=== PATIENT | female | born 1940 | race Caucasian/White ===

== ENCOUNTER → 2016-11-30 | Outpatient (CLI) | payer OTHER | LOC: BMCIMAGING 08:47 | PROVIDERS: ATTEND Emergency Medicine | DX: J42 Unspecified chronic bronchitis (principal); M85.88 Other specified disorders of bone density and structure, other site ==

== ENCOUNTER → 2017-05-09 | Outpatient (CLI) | payer OTHER | LOC: FIMAGING 16:13 | PROVIDERS: ATTEND Internal Medicine | DX: N13.30 Unspecified hydronephrosis (principal); N20.0 Calculus of kidney; N28.89 Other specified disorders of kidney and ureter; N17.9 Acute kidney failure, unspecified ==

== ENCOUNTER 2017-05-10 10:09 | Day surgery (SDC) | payer OTHER ==
[2017-05-09 18:25] LABS: % IMMATURE GRANULYOCYTES 0.5 % (0.0-1.1); ABSOLUTE IMMATURE GRANULOCYTES 0.04 10^3/uL (0.00-0.10); ADD DIFF? NO; ADD MORPH? NO; ADD SCAN? NO; ATYPICAL LYMPHOCYTE FLAG 0 (0-99); FRAGMENT RBC FLAG 0 (0-99); HEMATOCRIT 37.9 % (38.0-47.0); HEMOGLOBIN 12.5 g/dL (12.6-16.3); LEFT SHIFT FLG 0 (0-99); LIPEMIA HEMOLYSIS FLAG 80 (0-99); MEAN CELL HEMOGLOBIN 32.1 pg (27.9-34.1); MEAN CELL VOLUME 97.2 fL (81.5-99.8); MEAN PLATELET VOLUME 9.3 fL (8.7-11.7); PLATELET CLUMPS FLAG 0 (0-99); PLATELET COUNT 344 10^3/uL (150-400); RED CELL DISTRIBUTION WIDTH 13.2 % (11.5-15.2)
[2017-05-09 19:00] LABS: APTT 29.3 SEC (23.0-38.0); INR 0.99 (0.83-1.16)
[2017-05-10] MEDS ORDERED: IOPAMIDOL (ISOVUE-300) 100 ML BTL ONE (10:24)
[2017-05-10] MEDS ORDERED: NS 1,000 ML IV SCH (10:45)
[2017-05-10] MEDS ORDERED: fentaNYL 100 MCG/2 ML INJ ONE (11:29)
[2017-05-10] MEDS ORDERED: MIDAZOLAM 2 MG/2 ML VIAL ONE (11:29)
[2017-05-10] MEDS ORDERED: LIDOCAINE 1% 300 MG/30 ML SDV ONE (12:17)
[2017-05-10 13:38] VITALS: BP 143/90; RESP 14; O2SAT 94
[2017-05-10 13:49] LABS: CREATININE 2.1 mg/dL (0.6-1.0); GLOMERULAR FILTRATION RATE 23
[2017-05-10] MEDS ORDERED: CLINDAMYCIN 600 MG/DEXTROSE 50 ML IV ONE (14:00)
== END 2017-05-10 13:50 | disposition home or self-care (01) ==
LOC: FIMAGING 10:09
PROVIDERS: ATTEND Internal Medicine
PROC: 0T9030Z Drainage of Right Kidney with Drainage Device, Percutaneous Approach (ICD-10-PCS; principal; 2017-05-10 12:25)
DX: N13.2 Hydronephrosis with renal and ureteral calculous obstruction (principal); N17.9 Acute kidney failure, unspecified; I12.9 Hypertensive chronic kidney disease with stage 1 through stage 4 chronic kidney disease, or unspecified chronic kidney disease; E11.22 Type 2 diabetes mellitus with diabetic chronic kidney disease; E03.9 Hypothyroidism, unspecified; N08 Glomerular disorders in diseases classified elsewhere; Z85.850 Personal history of malignant neoplasm of thyroid
CPT/HCPCS: 50432; 99152; C1729; C1769; J2250; J3010; Q9967

== ENCOUNTER → 2017-05-15 | Outpatient (CLI) | payer OTHER | LOC: CIMAGING 11:04 | PROVIDERS: ATTEND Physician Assistant Medical | DX: N20.0 Calculus of kidney (principal); Z93.6 Other artificial openings of urinary tract status; K57.30 Diverticulosis of large intestine without perforation or abscess without bleeding; K42.9 Umbilical hernia without obstruction or gangrene; K44.9 Diaphragmatic hernia without obstruction or gangrene; I70.0 Atherosclerosis of aorta; M51.35 Other intervertebral disc degeneration, thoracolumbar region; M51.36 Other intervertebral disc degeneration, lumbar region; M48.06 Spinal stenosis, lumbar region | CPT/HCPCS: 74176-PO ==

== ENCOUNTER 2017-05-29 07:30 | Day surgery (SDC) | payer OTHER ==
[2017-05-29] MEDS ORDERED: NALOXONE HCL 0.4 MG/ML INJ ONE (08:06)
[2017-05-29] MEDS ORDERED: fentaNYL 100 MCG/2 ML INJ ONE (08:06)
[2017-05-29] MEDS ORDERED: FLUMAZENIL 0.5 MG/5 ML MDV IVP ONE (08:06)
[2017-05-29] MEDS ORDERED: MIDAZOLAM 2 MG/2 ML VIAL ONE (08:07)
[2017-05-29] MEDS ORDERED: IOPAMIDOL (ISOVUE-300) 100 ML BTL ONE (08:30)
[2017-05-29] MEDS ORDERED: CLINDAMYCIN 900 MG/DEXTROSE 50 ML IV ONE (09:00)
[2017-05-29] MEDS ORDERED: methylPREDNISolone SOD SUCC 125 MG/2 ML VIAL ONE (10:18)
[2017-05-29] MEDS ORDERED: LIDOCAINE 1% 300 MG/30 ML SDV ONE (11:10)
[2017-05-29 11:48] VITALS: PULSE 69
[2017-05-29 13:10] VITALS: BP 125/51; RESP 16; O2SAT 93
[2017-05-29] MEDS ORDERED: ACETAMINOPHEN 325 MG TAB PO PRN (13:11)
[2017-05-29] MEDS ORDERED: ONDANSETRON 4 MG/2 ML VIAL IVP PRN (13:12)
[2017-05-29 13:14] VITALS: TEMP 97.5
== END 2017-05-29 13:18 | disposition home or self-care (01) ==
LOC: FIMAGING 07:30
PROVIDERS: ATTEND Radiology Diagnostic Radiology
PROC: BT161ZZ Fluoroscopy of Right Ureter using Low Osmolar Contrast (ICD-10-PCS; principal; 2017-05-29 11:23)
PROC: 0T763DZ Dilation of Right Ureter with Intraluminal Device, Percutaneous Approach (ICD-10-PCS; principal; 2017-05-29 11:23)
DX: N20.0 Calculus of kidney (principal); N13.1 Hydronephrosis with ureteral stricture, not elsewhere classified; E11.9 Type 2 diabetes mellitus without complications; Z87.442 Personal history of urinary calculi; Z98.84 Bariatric surgery status
CPT/HCPCS: 50693; 50706; 74425; 99152; 99153; C1729; C1769; J1200; J1644; J2250; J2310; J3010; Q9967

== ENCOUNTER 2017-05-30 06:57 | Observation (INO) | payer OTHER ==
[2017-05-30] MEDS ORDERED: VANCOMYCIN PHARMACY TO DOSE MISC ONE (07:11)
--- NOTE | 2017-05-30 07:13 | PDHPUP ---
History & Physical Update H&P update statement: This history and physical update is based on an assessment of the patient which was completed after admission or registration (within 24 hours), but prior to the surgery/procedure. H&P update: H&P reviewed & patient examined, no change in patient's condition since H&P completed
[2017-05-30] MEDS ORDERED: LR 1,000 ML IV ONE (07:29)
[2017-05-30] MEDS ORDERED: VANCOMYCIN HCL/NORMAL SALINE 250 ML IV ONE (07:30)
[2017-05-30] MEDS ORDERED: LIDOCAINE 1% 2 ML INJ ONE (07:40)
[2017-05-30] MEDS ORDERED: MINERAL OIL 10 ML VIAL ONE (07:41)
[2017-05-30] MEDS ORDERED: IOPAMIDOL (ISOVUE-300) 100 ML BTL ONE (07:43)
--- NOTE | 2017-05-30 07:53 | PDANEPAE ---
ANE History of Present Illness 76 yo F w lauren stones here for perc nephrolithotomy ANE Past Medical History - Cardiovascular History Hx Hypertension: Yes Hx Arrhythmias: No Hx Chest Pain: No Hx Coronary Artery / Peripheral Vascular Disease: No Hx CHF / Valvular Disease: No Hx Palpitations: No Cardiovascular History Comment: ABLATION 2014. INTERMITTENT PVC'S - Pulmonary History Hx COPD: No Hx Asthma/Reactive Airway Disease: No Hx Recent Upper Respiratory Infection: No Hx Oxygen in Use at Home: Yes Hx Sleep Apnea: Yes Sleep Apnea Screening Result - Last Documented: Positive Pulmonary History Comment: IVAN USES BIPAP. SOB WITH ACTIVITY - Neurologic History Hx Cerebrovascular Accident: No Hx Seizures: No Hx Dementia: No - Endocrine History Hx Diabetes: No Endocrine History Comment: NIDDM. HYPOTHYROID - Renal History Hx Renal Disorders: Yes Renal History Comment: DRAIN PLACED RT KIDNEY 05/10/17. HEMATURIA. PREV KIDNEY STONES. 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 CHRONIC BACK PAIN - Chronic Pain History Chronic Pain: Yes (BACK) - Surgical History Prior Surgeries: ABLATION 2014. gallbladder removal 2003. partial thyroidectomy 2006. lap band 2006. parathyroidectomy 2008. face lift 2010. CATARACT. TONSILLECTOMY ANE Review of Systems - Exercise capacity METS (RN): 4 METS ANE Patient History - Allergies Allergies/Adverse Reactions: Iodinated Contrast- Oral and IV Dye [Iodinated Contrast Media - IV Dye] Allergy (Severe, Verified 05/24/17 12:13) Swelling/neck,face,throat cefuroxime axetil [From Ceftin] Allergy (Intermediate, Verified 05/24/17 12:13) Rash - Home Medications Home Medications: Herbals/Supplements -Info Only 1 ea PO DAILY 07/06/15 [Last Taken 05/24/17] Levothyroxine [Synthroid 125 mcg (*)] 125 mcg PO DAILY06 05/09/17 [Last Taken ] Labetalol HCl [Trandate 200 mg (*)] 200 mg PO BID 05/24/17 [Last Taken 05/30/17 05:30] - NPO status NPO Since - Liquids (Date): 05/29/17 NPO Since - Liquids (Time): 17:00 NPO Since - Solids (Date): 05/29/17 NPO Since - Solids (Time): 17:00 - Anes Hx Anes Hx: no prior problems - Smoking Hx Smoking Status: Never smoked - Alcohol Use Alcohol Use: None - Family Anes Hx Family Anes Hx: none Family Hx Anesthesia Complications: None ANE Labs/Vital Signs - Vital Signs Blood Pressure: 151/79 Heart Rate: 63 Respiratory Rate: 16 O2 Sat (%): 92 Height: 158.75 cm Weight: 103.419 kg ANE Physical Exam - Airway Neck exam: FROM Mallampati Score: Class 3 Mouth exam: normal dental/mouth exam - Pulmonary Pulmonary: no respiratory distress - Cardiovascular Cardiovascular: regular rate and rhythym - ASA Status ASA Status: III ANE Anesthesia Plan Anesthesia Plan: general endotracheal anesthesia
--- NOTE | 2017-05-30 07:54 | GHP ---
[f rep st] PREOP HISTORY AND PHYSICAL HISTORY OF PRESENT ILLNESS: This is a 76-year-old lady who was referred originally because of right-sided hydronephrosis. She had a percutaneous nephrostomy tube placed for drainage, and her creatinine decreased in nature. The question was whether she had a distal ureteral stone at the time, and repeat assessment revealed no stone. Then she also had a left large staghorn calculus and, at the present time, she is admitted for the percutaneous nephrostolithotomy of the left staghorn calculus that measured 23 mm x 13 mm x 31 mm. PAST MEDICAL HISTORY: Significant as she has had diabetes, hypertension, hypercholesterolemia, hydronephrosis and kidney stone. PAST SURGERIES: Gallbladder surgery, gastric bypass, and thyroid surgery. MEDICATIONS: Amlodipine, oxycodone, Synthroid. ALLERGIES: Ceftin and iodine. FAMILY HISTORY: Heart disease, kidney stones, prostate cancer. SOCIAL HISTORY: Nondrinker and nonsmoker. She is and retired. REVIEW OF SYSTEMS: Negative cardiac, respiratory, GI and endocrine, other than the endocrine having hypothyroidism treated. PHYSICAL EXAM: VITAL SIGNS: In the office, she has a blood pressure of 115/75 , heart rate of 67, respirations 16, O2 saturation on room air was 95% and BMI of 40.24. VITAL SIGNS: Stable. CHEST: Clear. HEART: Regular rate and rhythm. ABDOMEN: Normal. No organomegaly, rebound, or guarding. She does have abdominal obesity. EXTREMITIES: Lower extremities are normal. NEUROLOGIC : She is oriented to time, place, and person. PLAN: At present time, she is admitted to undergo the above procedure. /[id number]/MODL MTDD
[2017-05-30] MEDS ORDERED: MIDAZOLAM 2 MG/2 ML VIAL IVP ONE (07:57)
[2017-05-30] MEDS ORDERED: PROPOFOL 200 MG/20 ML VIAL ONE ×2 (08:16)
[2017-05-30] MEDS ORDERED: fentaNYL 100 MCG/2 ML INJ ONE ×2 (08:16→10:52)
[2017-05-30] MEDS ORDERED: ROCURONIUM 50 MG/5 ML VIAL ONE (08:18)
[2017-05-30] MEDS ORDERED: LIDOCAINE 2% 100 MG/5 ML SYR ONE (08:18)
[2017-05-30] MEDS ORDERED: DEXAMETHASONE 4 MG/ML VIAL ONE (09:48)
[2017-05-30] MEDS ORDERED: ONDANSETRON 4 MG/2 ML VIAL ONE (09:48)
[2017-05-30] MEDS ORDERED: ACETAMINOPHEN 500 MG TAB PO PRN (10:48)
[2017-05-30] MEDS ORDERED: PROMETHAZINE HCL 25 MG/ML INJ IVP PRN (10:48)
[2017-05-30] MEDS ORDERED: ONDANSETRON 4 MG/2 ML VIAL IVP PRN (10:48)
[2017-05-30] MEDS ORDERED: NALOXONE HCL 0.4 MG/ML INJ IVP PRN (10:48)
[2017-05-30] MEDS ORDERED: OXYCODONE/APAP 5/325 TAB PO PRN (10:48)
[2017-05-30] MEDS ORDERED: HYDROmorphONE/DILAUDID 1 MG/ML SYR IVP PRN (10:48)
[2017-05-30] MEDS ORDERED: fentaNYL 100 MCG/2 ML INJ IVP PRN (10:48)
--- NOTE | 2017-05-30 11:02 | POSTOPPROG ---
Post Op Note Date of Operation: 05/30/17 Surgeon: Chava Moe Anesthesia: GET(General Endotracheal) Pre-op Diagnosis: lt staghorn Procedure: PCNL Inf/Abcess present in the surg proc area at time of surgery?: No EBL: 100-500 Drains: Nephrostomy Specimen(s): stone foe analysis and culture DICTATED
--- NOTE | 2017-05-30 11:05 | POSTOPPROG ---
Post Op Note Date of Operation: 05/30/17 Surgeon: Cristian Whitaker Multi Sensor Operator: Tessy Apodaca Anesthesia: GET(General Endotracheal) Pre-op Diagnosis: Left staghorn calculus Post-op Diagnosis: Same Indication: Left staghorn calculus Procedure: Tract dilation for PCNL by Dr. Moe, nephrostomy placement Findings: See report Inf/Abcess present in the surg proc area at time of surgery?: No EBL: 100-500 (Total, including PCNL portion performed by Dr. Moe) Complications: No immediate Drains: Nephrostomy (14-Fr left nephrostomy)
--- NOTE | 2017-05-30 11:55 | GOP ---
[f rep st] OPERATIVE REPORT DATE OF OPERATION: 05/30/2017 SURGEON: Chava Moe MD PREOPERATIVE DIAGNOSIS: Left staghorn calculus of the kidney. POSTOPERATIVE DIAGNOSIS: Left staghorn calculus of the kidney. PROCEDURE PERFORMED: Percutaneous nephrostolithotomy. FINDINGS: DESCRIPTION OF PROCEDURE: After appropriate general anesthesia and identification of the patient an d that eye appropriate time-out Interventional Radiology, dilated the tract and then I was able to e ventually suck all the clot out of the tubing in the renal pelvis. Identify the stone and with the [employer] was able to fragment the stone and aspirate all the small fragments. At the end of the pr ocedure, there was no significant fragment identified in any of the collecting system and the ureter appeared to be intact and after removal of this large staghorn calculus, fragments will be sent for analysis and then Interventional Radiology put in a nephrostomy tube that was appropriate. SURGEON: Chava Moe MD POSTOPERATIVE PLAN: She will be admitted for postoperative care. We will check serial hematocrits on her x3 and confirm that she has no significant bleeding and then postop date of 1-5, depending on her status, I will have him perform an antegrade nephrostogram to confirm no significant stone stacey en remaining. She may have some small specks of stone just from the fragmentation, but once again n o visualized calculus endoscopically or radiographically were identified postprocedure. /[id number]/MODL
--- NOTE | 2017-05-30 13:14 | POSTANESTH ---
Post Anesthetic Evaluation Cardiovascular Status: Normal, Stable, Similar to Pre-Op Cond Respiratory Status: Normal, Stable, Similar to Pre-op Cond. Level of Consciousness/Mental Status: Can Participate in Eval, Alert and Oriented Pain Control: Adequate, Prn Tx Ordered Nausea/Vomiting Control: Adequate, Prn Tx Ordered Complications Possibly Related to Anesthesia: None Noted
[2017-05-30] MEDS ORDERED: HYDROCODONE/APAP 5/325 TAB PO PRN (14:26)
[2017-05-30] MEDS ORDERED: ONDANSETRON DISINTEGRATING 4 MG TAB PO PRN (14:27)
[2017-05-30] MEDS ORDERED: NS 1,000 ML IV SCH (14:30)
[2017-05-31 03:50] VITALS: O2SAT 93
[2017-05-31 05:19] LABS: HEMATOCRIT 31.4 % (38.0-47.0); HEMOGLOBIN 10.1 g/dL (12.6-16.3)
[2017-05-31 07:38] VITALS: BP 158/85; PULSE 76; RESP 16; TEMP 98.5
[2017-05-31] MEDS ORDERED: IOPAMIDOL (ISOVUE-300) 100 ML BTL ONE (10:12)
[2017-05-31] MEDS ORDERED: LABETALOL HCL 200 MG TAB PO SCH (10:15)
[2017-05-31] MEDS ORDERED: LEVOTHYROXINE 125 MCG TAB PO SCH (10:15)
[2017-06-04 18:58] LABS: SOURCE OF STONE LEFT KIDNEY
[2017-06-04 19:00] LABS: NIDUS NOT OBSERVED
== END 2017-05-31 11:23 | disposition home or self-care (01) ==
LOC: INTOOBSV 06:57 → F3N 06:57 → F1N 12:37
PROVIDERS: ADMIT Specialist; ATTEND Specialist
PROC: 0TC14ZZ Extirpation of Matter from Left Kidney, Percutaneous Endoscopic Approach (ICD-10-PCS; principal; 2017-05-30 08:30)
PROC: 0TP5X0Z Removal of Drainage Device from Kidney, External Approach (ICD-10-PCS; 2017-05-30 08:30)
PROC: BT121ZZ Fluoroscopy of Left Kidney using Low Osmolar Contrast (ICD-10-PCS; 2017-05-30 08:30)
PROC: 0T9130Z Drainage of Left Kidney with Drainage Device, Percutaneous Approach (ICD-10-PCS; 2017-05-30 08:30)
PROC: 0T773ZZ Dilation of Left Ureter, Percutaneous Approach (ICD-10-PCS; 2017-05-30 08:30)
DX: N13.2 Hydronephrosis with renal and ureteral calculous obstruction (principal); E11.9 Type 2 diabetes mellitus without complications; I10 Essential (primary) hypertension; E78.5 Hyperlipidemia, unspecified; Z87.442 Personal history of urinary calculi; Z98.84 Bariatric surgery status; Z85.850 Personal history of malignant neoplasm of thyroid
CPT/HCPCS: 50080; 50432; 74425; 74485; 75984; C1725; C1729; C1769; J1100; J1200; J1644; J2001; J2250; J2405; J2704; J3010; J3370; Q9967; 82365-90

== ENCOUNTER 2017-06-06 09:06 | Day surgery (SDC) | payer OTHER ==
[2017-06-06] MEDS ORDERED: fentaNYL 100 MCG/2 ML INJ ONE (09:47)
[2017-06-06] MEDS ORDERED: FLUMAZENIL 0.5 MG/5 ML MDV IVP ONE (09:47)
[2017-06-06] MEDS ORDERED: MIDAZOLAM 2 MG/2 ML VIAL ONE (09:47)
[2017-06-06] MEDS ORDERED: NALOXONE HCL 0.4 MG/ML INJ ONE (09:47)
[2017-06-06] MEDS ORDERED: CLINDAMYCIN 900 MG/DEXTROSE/50 ML BAG IV ONE (09:48)
[2017-06-06] MEDS ORDERED: NS 1,000 ML IV SCH (10:00)
[2017-06-06] MEDS ORDERED: IOPAMIDOL (ISOVUE-300) 100 ML BTL ONE (11:13)
[2017-06-06 12:16] VITALS: PULSE 62
[2017-06-06 13:01] VITALS: BP 119/53; RESP 16; O2SAT 98
== END 2017-06-06 12:52 | disposition home or self-care (01) ==
LOC: FIMAGING 09:06
PROVIDERS: ATTEND Physician Assistant Medical
DX: N13.5 Crossing vessel and stricture of ureter without hydronephrosis (principal)
CPT/HCPCS: 50693; 74425; 99152; C1729; C1769; C1894; J1200; J1644; J2250; J2310; J3010; Q9967

== ENCOUNTER 2017-06-07 17:36 | Emergency (ER) | payer OTHER ==
[2017-06-07 18:29] LABS: % IMMATURE GRANULYOCYTES 0.8 % (0.0-1.1); ABSOLUTE IMMATURE GRANULOCYTES 0.09 10^3/uL (0.00-0.10); ADD DIFF? NO; ADD MORPH? NO; ADD SCAN? NO; ATYPICAL LYMPHOCYTE FLAG 0 (0-99); FRAGMENT RBC FLAG 0 (0-99); HEMATOCRIT 33.1 % (38.0-47.0); HEMOGLOBIN 10.9 g/dL (12.6-16.3); LEFT SHIFT FLG 10 (0-99); LIPEMIA HEMOLYSIS FLAG 80 (0-99); MEAN CELL HEMOGLOBIN 32.2 pg (27.9-34.1); MEAN CELL HEMOGLOBIN CONCENTR. 32.9 g/dL (32.4-36.7); MEAN CELL VOLUME 97.9 fL (81.5-99.8); MEAN PLATELET VOLUME 9.8 fL (8.7-11.7); PLATELET CLUMPS FLAG 0 (0-99); PLATELET COUNT 368 10^3/uL (150-400); RED BLOOD CELL COUNT 3.38 10^6/uL (4.18-5.33); RED CELL DISTRIBUTION WIDTH 13.6 % (11.5-15.2)
--- NOTE | 2017-06-07 18:43 | EDPHY ---
H & P Stated Complaint: Hx kidney stone;renal drain removed/stent placed 06/06;fever 101,incontinent Time Seen by Provider: 06/07/17 17:57 HPI/ROS: Chief complaint: Fever, pain with urination and urinary incontinence History of present illness: This is a 76-year-old female who presents to the emergency department for evaluation of fever with associated dysuria and urinary incontinence. Patient reports the onset of symptoms over the last day. She is concerned this is secondary to a procedure she underwent yesterday. Patient has a significant recent medical history that includes a right-sided kidney stone that required a percutaneous nephrostomy tube a few weeks ago and then a subsequent development of a staghorn calculus on the left side that required a nephrostolithotomy. Yesterday she underwent a nephrogram and had a double-J ureteral stent placed by interventional Radiology. Symptoms have begun since then. Review of systems: A 10 point review of systems was obtained and other than described above was negative - Personal History Current Tetanus Diphtheria and Acellular Pertussis (TDAP): Yes - Medical/Surgical History Hx Asthma: No Hx Chronic Respiratory Disease: Yes Hx Diabetes: No Hx Cardiac Disease: No Hx Renal Disease: No Hx Cirrhosis: No Hx Alcoholism: No Hx HIV/AIDS: No Hx Splenectomy or Spleen Trauma: No Other PMH: Leukemia 2004, IV[facility], osteoarthritis, EP Ablation for PVCs, Angiogram in [place]. kidney stone - Social History Smoking Status: Never smoked - Physical Exam Exam: General Appearance: Alert, nontoxic. Eyes: Pupils equal and round no pallor or injection. ENT, Mouth: Mucous membranes moist. Respiratory: There are no retractions, lungs are clear to auscultation. Cardiovascular: Regular rate and rhythm. Gastrointestinal: Abdomen is soft and non tender, no masses, bowel sounds normal. Neurological: Alert and oriented x4. Strength and sensation intact and symmetrical. Skin: Warm and dry, no rashes. IR site on her back appears unremarkable. Musculoskeletal: Neck is supple non tender. Extremities are symmetrical, full range of motion. Psychiatric: Patient is oriented X 3, there is no agitation. Constitutional: Initial Vital Signs Temperature (C) 38 C 06/07/17 17:45 Heart Rate 94 06/07/17 17:45 Respiratory Rate 18 06/07/17 17:45 Blood Pressure 130/59 H 06/07/17 17:45 O2 Sat (%) 94 06/07/17 17:45 O2 Delivery Mode Room Air Allergies/Adverse Reactions: Iodinated Contrast- Oral and IV Dye [Iodinated Contrast Media - IV Dye] Allergy (Severe, Verified 06/07/17 17:49) Swelling/neck,face,throat cefuroxime axetil [From Ceftin] Allergy (Intermediate, Verified 06/07/17 17:49) Rash Home Medications: Medication Instructions Recorded Herbals/Supplements -Info Only 1 ea PO DAILY 07/06/15 Levothyroxine [Synthroid 125 mcg 125 mcg PO DAILY06 05/09/17 (*)] Labetalol HCl [Trandate 200 mg (*)] 200 mg PO BID 05/24/17 levOFLOXACIN [levAQUIN (*)] 750 mg PO DAILY #9 tab 06/07/17 Medical Decision Making - Diagnostics Imaging Results: Imaging Impressions Chest X-Ray 06/07/17 18:11 Impression: Left basilar airspace opacity may represent atelectasis and/or pneumonia in the appropriate clinical setting. ED Course/Re-evaluation: Patient is discussed with my secondary supervising physician Dr. Roe Turner. Patient presents to the emergency department for fever, dysuria and urinary incontinence. She does appear to have urinary tract infection by catheterized urine. There is concern for the development of a pneumonia on her chest x-ray. She has allergies to cephalosporins. Review of previous urine sensitivities does show a history of moe sensitivity. I have discussed the case with on-call Urology, Dr. Kasper. He is comfortable with patient being started on antibiotics and following up in clinic. We have decided to start patient on Levaquin. This should cover her urinary tract infection and also potential pneumonia in a recently hospitalized patient. I have discussed this with the patient and her family. I have offered them admission but they have declined. They are happy to follow up in clinic. Home care is discussed. Strict return precautions are given. Patient and family voiced understanding and agreement with plan. Differential Diagnosis: Included but not limited to urinary tract infections, respiratory tract infections - Data Points Laboratory Results: Laboratory Results 06/07/17 18:10 06/07/17 18:10 06/07/17 06/07/17 06/07/17 18:57 18:10 18:10 WBC 11.00 10^3/uL H 10^3/uL (3.80-9.50) RBC 3.38 10^6/uL L 10^6/uL (4.18-5.33) Hgb 10.9 g/dL L g/dL (12.6-16.3) Hct 33.1 % L % (38.0-47.0) MCV 97.9 fL fL (81.5-99.8) MCH 32.2 pg pg (27.9-34.1) MCHC 32.9 g/dL g/dL (32.4-36.7) RDW 13.6 % % (11.5-15.2) Plt Count 368 10^3/uL 10^3/uL (150-400) MPV 9.8 fL fL (8.7-11.7) Neut % (Auto) 83.0 % H % (39.3-74.2) Lymph % (Auto) 9.9 % L % (15.0-45.0) [place] % (Auto) 5.5 % % (4.5-13.0) Eos % (Auto) 0.3 % L % (0.6-7.6) Baso % (Auto) 0.5 % % (0.3-1.7) Nucleat RBC Rel Count 0.0 % % (0.0-0.2) Absolute Neuts (auto) 9.13 10^3/uL H 10^3/uL (1.70-6.50) Absolute Lymphs (auto) 1.09 10^3/uL 10^3/uL (1.00-3.00) Absolute Monos (auto) 0.61 10^3/uL 10^3/uL (0.30-0.80) Absolute Eos (auto) 0.03 10^3/uL 10^3/uL (0.03-0.40) Absolute Basos (auto) 0.05 10^3/uL 10^3/uL (0.02-0.10) Absolute Nucleated RBC 0.00 10^3/uL 10^3/uL (0-0.01) Immature Gran % 0.8 % % (0.0-1.1) Immature Gran # 0.09 10^3/uL 10^3/uL (0.00-0.10) VBG Lactic Acid Sodium 139 mEq/L mEq/L (134-144) Potassium 4.4 mEq/L mEq/L (3.5-5.2) Chloride 104 mEq/L mEq/L (97-110) Carbon Dioxide 19 mEq/l L mEq/l (22-31) Anion Gap 16 mEq/L mEq/L (8-16) BUN 19 mg/dL mg/dL (7-23) Creatinine 1.5 mg/dL H mg/dL (0.6-1.0) Estimated GFR 34 Glucose 128 mg/dL H mg/dL (70-100) Calcium 9.5 mg/dL mg/dL (8.5-10.4) Urine Color YELLOW Urine Appearance MODERATELY TURBID Urine pH 5.0 (5.0-7.5) Ur Specific Upper Tract 1.012 (1.002-1.030) Urine Protein 2+ H (NEGATIVE) Urine Ketones 1+ H (NEGATIVE) Urine Blood 3+ H (NEGATIVE) Urine Nitrate NEGATIVE (NEGATIVE) Urine Bilirubin NEGATIVE (NEGATIVE) Urine Urobilinogen NEGATIVE EU EU (0.2-1.0) Ur Leukocyte Esterase 3+ H (NEGATIVE) Urine RBC 50-182 /hpf H /hpf (0-3) Urine WBC 50-182 /hpf H /hpf (0-3) Ur Epithelial Cells TRACE /lpf /lpf (NONE-1+) Amorphous Sediment PRESENT /hpf /hpf (NONE-1+) Urine Bacteria 4+ /hpf H /hpf (NONE SEEN) Urine Glucose NEGATIVE (NEGATIVE) 06/07/17 18:10 WBC RBC Hgb Hct MCV MCH MCHC RDW Plt Count MPV Neut % (Auto) Lymph % (Auto) [place] % (Auto) Eos % (Auto) Baso % (Auto) Nucleat RBC Rel Count Absolute Neuts (auto) Absolute Lymphs (auto) Absolute Monos (auto) Absolute Eos (auto) Absolute Basos (auto) Absolute Nucleated RBC Immature Gran % Immature Gran # VBG Lactic Acid 1.3 mmol/L mmol/L (0.7-2.1) Sodium Potassium Chloride Carbon Dioxide Anion Gap BUN Creatinine Estimated GFR Glucose Calcium Urine Color Urine Appearance Urine pH Ur Specific Upper Tract Urine Protein Urine Ketones Urine Blood Urine Nitrate Urine Bilirubin Urine Urobilinogen Ur Leukocyte Esterase Urine RBC Urine WBC Ur Epithelial Cells Amorphous Sediment Urine Bacteria Urine Glucose Medications Given: Discontinued Medications Levofloxacin (Levaquin) 750 mg PO EDNOW ONE PRN Reason: Protocol Stop: 06/07/17 20:26 Last Admin: 06/07/17 20:42 Dose: 750 mg Departure - Departure Disposition: Home, Routine, Self-Care Clinical Impression: UTI (urinary tract infection) Qualifiers: Urinary tract infection type: site unspecified Hematuria presence: with hematuria Qualified Code(s): N39.0 - Urinary tract infection, site not specified ; R31.9 - Hematuria, unspecified Pneumonia Qualifiers: Pneumonia type: due to unspecified organism Laterality: left Lung location: lower lobe of lung Qualified Code(s): J18.1 - Lobar pneumonia, unspecified organism Condition: Good Instructions: Urinary Tract Infection in Women (ED) Additional Instructions: Follow-up with your urologist and primary care doctor on Saturday of next week If symptoms worsen or any new symptoms develop return immediately to the emergency room for recheck Referrals: Ajay Cary MD [Primary Care Provider] - As per Instructions Prescriptions: levOFLOXACIN [levAQUIN (*)] 750 mg PO DAILY #9 tab
[2017-06-07 18:48] LABS: ANION GAP 16 mEq/L (8-16); CALCIUM 9.5 mg/dL (8.5-10.4); CARBON DIOXIDE 19 mEq/l (22-31); CHLORIDE 104 mEq/L (97-110); CREATININE 1.5 mg/dL (0.6-1.0); GLOMERULAR FILTRATION RATE 34; GLUCOSE 128 mg/dL (70-100); POTASSIUM 4.4 mEq/L (3.5-5.2); SODIUM 139 mEq/L (134-144)
[2017-06-07 19:10] LABS: COLOR YELLOW; LEUKOCYTE ESTERASE,URINE 3+ (NEGATIVE); NITRITE,URINE NEGATIVE (NEGATIVE)
[2017-06-07 19:15] LABS: AMORPHOUS PRESENT /hpf (NONE-1+); BACTERIA 4+ /hpf (NONE SEEN); RBC,URINE 50-182 /hpf (0-3); WBC,URINE 50-182 /hpf (0-3)
[2017-06-07 20:50] VITALS: BP 134/74; PULSE 76; RESP 16; TEMP 99.7; O2SAT 97
== END 2017-06-07 20:48 | disposition home or self-care (01) ==
DX: J18.9 Pneumonia, unspecified organism (principal); N39.0 Urinary tract infection, site not specified; B96.89 Other specified bacterial agents as the cause of diseases classified elsewhere

== ENCOUNTER → 2017-07-15 | Outpatient (CLI) | payer OTHER | LOC: BMCIMAGING 12:53 | PROVIDERS: ATTEND Nurse Practitioner Adult Health | DX: Z12.31 Encounter for screening mammogram for malignant neoplasm of breast (principal); Z80.3 Family history of malignant neoplasm of breast | CPT/HCPCS: G0202 ==

== ENCOUNTER → 2017-07-16 | Outpatient (CLI) | payer OTHER | LOC: BMCIMAGING 11:15 | PROVIDERS: ATTEND Internal Medicine Rheumatology | DX: M19.011 Primary osteoarthritis, right shoulder (principal) ==

== ENCOUNTER → 2017-07-19 | Outpatient (CLI) | payer OTHER | LOC: BMCIMAGING 10:16 | PROVIDERS: ATTEND Nurse Practitioner Adult Health | DX: Z03.89 Encounter for observation for other suspected diseases and conditions ruled out (principal) | CPT/HCPCS: G0206 ==

== ENCOUNTER → 2017-07-29 | Outpatient (CLI) | payer OTHER | LOC: BMCIMAGING 12:03 | PROVIDERS: ATTEND Orthopaedic Surgery Hand Surgery | DX: M19.011 Primary osteoarthritis, right shoulder (principal) ==

== ENCOUNTER → 2017-07-30 | Outpatient (CLI) | payer OTHER | LOC: FIMAGING 09:29 | PROVIDERS: ATTEND Physician Assistant Medical | DX: N13.30 Unspecified hydronephrosis (principal); N20.0 Calculus of kidney ==

== ENCOUNTER → 2017-08-04 | Outpatient (CLI) | payer OTHER | LOC: FIMAGING 11:17 | PROVIDERS: ATTEND Orthopaedic Surgery Hand Surgery | DX: M19.011 Primary osteoarthritis, right shoulder (principal); S46.811A Strain of other muscles, fascia and tendons at shoulder and upper arm level, right arm, initial encounter ==

== ENCOUNTER → 2018-06-05 | Outpatient (CLI) | payer OTHER | LOC: FIMAGING 08:08 | PROVIDERS: ATTEND Internal Medicine | DX: N13.2 Hydronephrosis with renal and ureteral calculous obstruction (principal); K76.0 Fatty (change of) liver, not elsewhere classified ==

== ENCOUNTER → 2018-07-16 | Outpatient (CLI) | payer OTHER | LOC: BMCIMAGING 14:20 | PROVIDERS: ATTEND Internal Medicine Endocrinology, Diabetes & Metabolism | DX: Z12.31 Encounter for screening mammogram for malignant neoplasm of breast (principal); Z13.820 Encounter for screening for osteoporosis; M81.0 Age-related osteoporosis without current pathological fracture; Z78.0 Asymptomatic menopausal state; Z85.850 Personal history of malignant neoplasm of thyroid; Z85.6 Personal history of leukemia ==

== ENCOUNTER → 2018-07-19 | Outpatient (CLI) | payer OTHER | LOC: FIMAGING 10:08 | PROVIDERS: ATTEND Physician Assistant Medical | DX: N20.1 Calculus of ureter (principal); K80.20 Calculus of gallbladder without cholecystitis without obstruction; K76.9 Liver disease, unspecified; N28.9 Disorder of kidney and ureter, unspecified ==

== ENCOUNTER → 2018-08-18 | Outpatient (CLI) | payer OTHER | LOC: BMCIMAGING 10:06 | PROVIDERS: ATTEND Orthopaedic Surgery Hand Surgery | DX: M25.551 Pain in right hip (principal); M25.512 Pain in left shoulder ==

== ENCOUNTER → 2018-12-16 | Outpatient (CLI) | payer OTHER | LOC: FIMAGING 10:06 | PROVIDERS: ATTEND Internal Medicine | DX: N13.2 Hydronephrosis with renal and ureteral calculous obstruction (principal); K76.9 Liver disease, unspecified ==